=== PATIENT | female | born 1995 | race Caucasian/White ===

== ENCOUNTER → 2016-11-30 | Outpatient (CLI) | payer BC ==
[~2016-11-30] MED LIST: ATOM60CA PO
--- NOTE | 2016-11-30 18:18 | DIAGNOSTIC IMAGING REPORT ---
LUMBAR SPINE MRI HISTORY: Back pain. Radiculopathy. [facility] [place] LOW BACK PAIN TECHNIQUE: Multiplanar multisequence MRI of the lumbar spine was performed without the use of contrast. COMPARISON: None. FINDINGS: For the purpose of the report the L5-S1 disc space will be located on axial image 27 of 30. Signal characteristics of the vertebral bodies as well as intervertebral discs are normal L1-L2: No significant central canal or neural foraminal narrowing. L2-L3: No significant central canal or neural foraminal narrowing. L3-L4: No significant central canal or neural foraminal narrowing. L4-L5: No significant central canal or neural foraminal narrowing. L5-S1: No significant central canal or neural foraminal narrowing. IMPRESSION: Normal study Electronically signed by: Martínez Smith M.D. 11/30/2016 6:17 PM Dictated Date/Time: 11/30/2016 6:16 PM
== END | disposition home or self-care (01) ==
LOC: C.MRI 17:14
PROVIDERS: ATTEND Family Medicine
DX: M54.5 Low back pain (principal)